=== PATIENT | male | born 1955 | race American Indian/Alaskan Native ===

== ENCOUNTER 2017-02-04 13:04 | Emergency (ER) | payer SELFPAY ==
[2017-02-04 17:48] LABS: Basophils % (Auto) 0.8 % (0.0-1.8); Eosinophils % (Auto) 1.6 % (0.0-4.3); Hematocrit 49.2 % (35.5-45.6); Hemoglobin 16.3 gm/dl (11.8-15.2); Mean Corpuscular HGB Conc 33 % (32-34); Mean Corpuscular Hemoglobin 29 pg (28-32); Mean Corpuscular Volume 89 fl (84-94); Platelet Count 296 K/mm3 (140-440); Red Blood Count 5.54 M/mm3 (3.65-5.03); White Blood Count 11.7 K/mm3 (4.5-11.0)
--- NOTE | 2017-02-04 18:52 | XRay Report ---
FINAL REPORT EXAM: XR CHEST ROUTINE 2V HISTORY: confusion TECHNIQUE: Two view chest PA and lateral PRIORS: None. FINDINGS: Cardiac and mediastinal contours are unremarkable. No focal pulmonary infiltrate is identified. No pleural fluid collection seen. Pulmonary vasculature is unremarkable. IMPRESSION: Negative two-view chest
[2017-02-04 19:31] LABS: Alanine Aminotransferase 30 units/L (7-56); Albumin 4.7 g/dL (3.9-5); Albumin/Globulin Ratio 1.5 %; Alkaline Phosphatase 56 units/L (35-129); Anion Gap 23 mmol/L; BUN/Creatinine Ratio 8.88; Blood Urea Nitrogen 8 mg/dL (9-20); Calcium 10.1 mg/dL (8.4-10.2); Carbon Dioxide 24 mmol/L (22-30); Chloride 97.3 mmol/L (98-107); Glucose 93 mg/dL (75-100); Potassium 5.1 mmol/L (3.6-5.0); Sodium 139 mmol/L (137-145); Total Protein 7.8 g/dL (6.3-8.2)
--- NOTE | 2017-02-04 20:12 | Cat Scan Report ---
FINAL REPORT EXAM: CT HEAD/BRAIN WO CON HISTORY: confusion TECHNIQUE: CT head without contrast PRIORS: None. FINDINGS: No acute intra-axial or extra-axial hemorrhage is identified. There is no evidence of midline shift or mass effect. The ventricles and sulci are within normal limits. Mistry-white matter differentiation is intact. No acute parenchymal abnormalities seen. There are patchy and confluent hypodensities within the supratentorial white matter. Bony calvarium is grossly intact. Visualized portions of the mastoids and paranasal sinuses are unremarkable. IMPRESSION: Chronic small vessel white matter ischemic change
[2017-02-04 20:16] LABS: Bilirubin,Urine NEG (Negative); Blood,Urine NEG (Negative); Ketones,Urine NEG (Negative); Leukocyte Esterase,Urine NEG (Negative); Nitrite,Urine NEG (Negative); Protein,Urine <15 mg/dL mg/dL (Negative); Urobilinogen,Urine < 2.0 mg/dL (<2.0); WBC,Urine < 1.0 /HPF (0.0-6.0)
--- NOTE | 2017-02-04 20:17 | Emergency Department Report ---
Entered by SAHIL HANKINS, acting as scribe for SHAKILA BRAGA NP. ED General Adult HPI - General Chief complaint: Medical Clearance Stated complaint: CHECK FOR DEMENTIA Time Seen by Provider: 02/04/17 16:46 Source: family Mode of arrival: Ambulatory Limitations: No Limitations - History of Present Illness Initial comments: 61 y/o male presents with son to the ED c/o confusion x 3 weeks. Associated symptoms include frequency but he denies weakness, headache, chest pain, SOB, nausea, vomiting, fever and chills. Patient's son states his father got lost on his way from work for approximately 12 hours (15:00-03:00) and is worried he might be developing dementia. Patient states it takes him 15 min to get home from work but he did not know his whereabouts. No alleviating or aggravating factors. NKDA. Onset/Timin -: week(s) Severity scale (0 -10): 4 Consistency: intermittent Improves with: none Worsens with: none Associated Symptoms: confusion, other (frequency). denies: chest pain, fever/ chills, headaches, nausea/vomiting, shortness of breath, weakness Treatments Prior to Arrival: none - Related Data Allergies Allergy/AdvReac Type Severity Reaction Status Date / Time No Known Allergies Allergy Unverified 02/04/17 13:20 ED Review of Systems Comment: All other systems reviewed and negative Constitutional: denies: chills, fever Eyes: denies: eye pain, eye discharge, vision change ENT: denies: ear pain, throat pain Respiratory: no symptoms reported. denies: shortness of breath Cardiovascular: denies: chest pain Endocrine: no symptoms reported Gastrointestinal: denies: nausea, vomiting Genitourinary: frequency. denies: dysuria, hematuria, discharge, testicular pain, testicular mass Musculoskeletal: denies: back pain, joint swelling, arthralgia Skin: denies: rash, lesions Neurological: confusion. denies: headache, weakness Psychiatric: denies: anxiety, depression Hematological/Lymphatic: denies: easy bleeding, easy bruising ED Past Medical Hx - Past Medical History Previous Medical History?: No - Surgical History Past Surgical History?: No - Social History Smoking Status: Current Every Day Smoker Substance Use Type: Alcohol ED Physical Exam - General Limitations: No Limitations General appearance: alert, in no apparent distress - Head Head exam: Present: atraumatic, normocephalic, normal inspection - Eye Eye exam: Present: normal appearance, PERRL, EOMI. Absent: scleral icterus, conjunctival injection, nystagmus, periorbital swelling, periorbital tenderness Pupils: Present: normal accommodation - ENT ENT exam: Present: normal exam, normal orophraynx, mucous membranes moist, TM's normal bilaterally, normal external ear exam - Neck Neck exam: Present: normal inspection, full ROM. Absent: tenderness, meningismus, lymphadenopathy, thyromegaly - Respiratory Respiratory exam: Present: normal lung sounds bilaterally. Absent: respiratory distress, wheezes, rales, rhonchi, stridor, chest wall tenderness, accessory muscle use, decreased breath sounds, prolonged expiratory - Cardiovascular Cardiovascular Exam: Present: regular rate, normal rhythm, normal heart sounds. Absent: bradycardia, tachycardia, irregular rhythm, systolic murmur, diastolic murmur, rubs, gallop - GI/Abdominal GI/Abdominal exam: Present: soft, normal bowel sounds. Absent: distended, tenderness, guarding, rebound, rigid, diminished bowel sounds - Rectal Rectal exam: Present: deferred - Extremities Exam Extremities exam: Present: normal inspection, full ROM, normal capillary refill. Absent: tenderness, pedal edema, joint swelling, calf tenderness - Back Exam Back exam: Present: normal inspection, full ROM. Absent: tenderness, CVA tenderness (R), CVA tenderness (L), muscle spasm, paraspinal tenderness, vertebral tenderness, rash noted - Neurological Exam Neurological exam: Present: alert, CN II-XII intact, normal gait, reflexes normal - Expanded Neurological Exam Expanded Neurological exam: Present: memory loss-recent event Patient oriented to: Present: person, place Speech: Present: fluid speech Cranial nerves: EOM's Intact: Normal, Gag Reflex: Normal, Tongue Deviation: Normal, Nystagmus: Normal, Facial Sensation: Normal, Facial Palsy with Forehead Movement: Normal, Facial Palsy without Forehead Movement: Normal Cerebellar function: Finger to Nose: Normal, Heel to Hess: Normal, Romberg: Normal Upper motor neuron: Bhavin Neglect: Normal, Pronator Drift: Normal, Babinski Sign : Normal, Sensory Extinction: Normal Sensory exam: Upper Extremity Light Touch: Normal, Upper Extremity Pin Prick: Normal, Upper Extremity Temperature: Normal, UE 2 Point Discrimination: Normal, Lower Extremity Light Touch: Normal, Lower Extremity Pin Prick: Normal, Lower Extremity Temperature: Normal, LE 2 Point Discrimination: Normal Motor strength exam: RUE: 5, LUE: 5, RLE: 5, LLE: 5 DTR: bicep (R): 2+, bicep (L): 2+, tricep (R): 2+, tricep (L): 2+, knee (R): 2+ , knee (L): 2+, ankle (R): 2+, ankle (L): 2+ Best Eye Response (Deep Water): (4) open spontaneously Best Motor Response (Christy): (6) obeys commands Best Verbal Response (Deep [place]): (5) oriented Deep [place] Total: 15 - Psychiatric Psychiatric exam: Present: normal mood, flat affect. Absent: homicidal ideation , suicidal ideation - Skin Skin exam: Present: warm, dry, intact, normal color. 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 left work ad 3 pm and could not remember how to get to [address], son called at 2am and pt could not tell him where he was, pt's license have been suspended by police as he is considered no longer safe to drive, pt's son presents today for referral to Primary care or admission if stroke. 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 ED Disposition Clinical Impression: Memory changes Disposition: DC-01 TO HOME OR SELFCARE Is pt being admited?: No Does the pt Need Aspirin: No Condition: Good Instructions: Dementia (ED), Fall Prevention for Older Adults (ED) Additional Instructions: follow up with Dr. Igor Reeves [phone] call on tuesday to setup appointment, dementia safety precautions as discussed, no driving, fall prevention as discussed Referrals: PRIMARY CARE,MD [Primary Care Provider] - 3-5 Days Time of Disposition: 20:15 This documentation as recorded by the CR montilla ELIZABETH,accurately reflects the service I personally performed and the decisions made by me, SHAKILA BRAGA NP.
[2017-02-04 20:27] VITALS: BP 181/104
== END 2017-02-04 20:27 | disposition home or self-care (01) ==
LOC: ED 13:04
DX: R41.0 Disorientation, unspecified (principal); F17.210 Nicotine dependence, cigarettes, uncomplicated
CPT/HCPCS: 36415; 70450; 71020; 80053; 81001; 84484; 85025; 93005; 93010; 99284

== ENCOUNTER 2017-09-02 13:00 | Day surgery (SDC) | payer SELFPAY ==
[2017-09-02 14:03] LABS: Hematocrit 46.1 % (35.5-45.6); Hemoglobin 15.7 gm/dl (11.8-15.2); Mean Corpuscular HGB Conc 34 % (32-34); Mean Corpuscular Hemoglobin 29 pg (28-32); Mean Corpuscular Volume 85 fl (84-94); Red Blood Count 5.45 M/mm3 (3.65-5.03); Red Cell Distribution Width 15.1 % (13.2-15.2)
[2017-09-02 14:05] LABS: Platelet Count 315 K/mm3 (140-440)
[2017-09-02 14:18] LABS: INR 0.97 (0.87-1.13)
[2017-09-02 14:19] LABS: Partial Thromboplastin Time 29.7 Sec. (24.2-36.6)
[2017-09-02] MEDS ORDERED: XYLOCAINE 1% 20 mL INFILTRATI ONE (14:41)
[2017-09-02] MEDS ORDERED: XYLOCAINE 1% 20 mL ONE (14:43)
--- NOTE | 2017-09-02 16:02 | Fluoroscopy Report ---
FLUORO GUIDED LUMBAR PUNCTURE INDICATION: Multiple sclerosis. COMPARISON: None similar. FINDINGS: After obtaining risks and benefits to patient's son, written informed consent obtained. Patient appeared confused and unable to consent himself. Patient positioned prone on the fluoroscopy table. An appropriate skin site marked using fluoro guidance. Patient prepped and draped in the usual sterile fashion. 1% lidocaine used for local anesthesia. A 22-gauge spinal needle advanced into the thecal sac at L3-L4 with clear CSF obtained. Total of approximately 10 cc CSF retrieved and sent to the lab in 4 separate test tubes. Patient tolerated the procedure well and left the department in stable condition. CONCLUSION: Status post lumbar puncture, as described. Dr. Garcia present for and performed the entire procedure. Thank you for the opportunity to participate in this patient's care.
--- NOTE | 2017-09-02 16:11 | Short Stay Summary ---
Short Stay Documentation Date of service: 09/02/17 - Allergies and Medications Current Medications: Allergies No Known Allergies Allergy (Verified 09/02/17 13:24) Home Medications Medication Instructions Recorded Confirmed Last Taken Type Sulfamethoxazole/Trimethoprim 1 each PO BID #20 tablet 02/04/17 Unknown Rx [Bactrim DS TAB] - Physical exam General appearance: no acute distress - Brief post op/procedure progress note Date of procedure: 09/02/17 Pre-op diagnosis: Multiple Sclerosis Post-op diagnosis: same Procedure: FL guided Lumbar puncture Anesthesia: local Findings: 10 cc clear CSF obatined. Surgeon: AKHIL NEVILLE Estimated blood loss: none Specimen disposition: to lab Condition: stable - Disposition Condition at discharge: Undetermined Disposition: DC- TO HOME OR SELFCARE Short Stay Discharge Plan Follow up with: PRIMARY CARE, [Primary Care Provider] - 7 Days
[2017-09-02 16:19] LABS: Glucose,CSF 68 mg/dL
[2017-09-02 16:39] VITALS: BP 166/99
[2017-09-02 16:53] LABS: Appearance,CSF Clear; Red Blood Cell,CSF 0.55 /mm3 (0-0); White Blood Cell,CSF 1.1 /mm3 (1-10)
[2017-09-02 17:24] LABS: Total Cells Counted 1 /mm3
[2017-09-02 17:25] LABS: Basophils CSF 0 %
== END 2017-09-02 17:00 | disposition home or self-care (01) ==
LOC: CATHLABREC 13:00 → EDSTATUS 13:00 → CATHLABREC 17:00
PROVIDERS: ATTEND Psychiatry & Neurology Neurology
DX: G35 Multiple sclerosis (principal); Z79.01 Long term (current) use of anticoagulants
CPT/HCPCS: 36415; 62270; 77003; 82947; 83516; 83916; 84160; 85027; 85610; 85730; 89051